=== PATIENT | female | born 1955 | race Hispanic/Latino ===

== ENCOUNTER 2018-03-15 10:57 | Day surgery (SDC) | payer BC ==
[2018-03-10 15:50] VITALS: BP 156/74
[2018-03-10 16:13] LABS: CREATININE 0.9 mg/dL (0.5-1.5); POTASSIUM 3.5 mmol/L (3.5-5.1)
[~2018-03-15] VITALS: Ht 162.6 cm; Wt 78.2 kg
[2018-03-15] VITALS (13 sets, daily range): BP systolic 125–190; BP diastolic 67–88
[~2018-03-15 10:57] MED LIST: ATOR10 PO; BIMA2.5D4 OU; CEFAZOLIN SODIUM 1 GM VIAL IVP ONE; COSO10OS OU; EMPA10TA PO; LACTATED RINGERS 1000ML 1,000 ML IV SCH
[2018-03-15] MEDS ORDERED: SODIUM CHLORIDE 0.9% 1000ML 1,000 ML IV ONE (11:29)
[2018-03-15] MEDS ORDERED: CEFAZOLIN SODIUM 1 GM VIAL ONE (11:29)
[2018-03-15] MEDS ORDERED: EPINEPHRINE 1 MG/ML 30ML VIAL IJ ONE (12:09)
[2018-03-15] MEDS ORDERED: BUPIVACAINE/EPI/PF 0.25% 30ML VIAL IJ ONE (12:10)
[2018-03-15] MEDS ORDERED: CELESTONE SOLUSPAN 6 MG/ML 5ML VIAL ONE (12:12)
[2018-03-15] MEDS ORDERED: LIDOCAINE PF 2% 5ML ABBOJECT ONE (13:44)
[2018-03-15] MEDS ORDERED: FENTANYL CITRATE PF 50 MCG/1 ML 2ML VIAL ONE ×2 (13:44→14:24)
[2018-03-15] MEDS ORDERED: PROPOFOL 10 MG/ML 20ML VIAL IV ONE (13:44)
[2018-03-15] MEDS ORDERED: ONDANSETRON HCL 4 MG/2 ML VIAL ONE (13:44)
[2018-03-15] MEDS ORDERED: SUCCINYLCHOLINE CHLORIDE 20 MG/ML 10 ML VIAL ONE ×2 (13:44→14:01)
[2018-03-15] MEDS ORDERED: DEXAMETHASONE SOD PHOSPHATE 4 MG/ML 1ML VIAL ONE (14:02)
[2018-03-15] MEDS ORDERED: MORPHINE SULFATE 4 MG/1ML SYG ONE (15:04)
[2018-03-15] MEDS ORDERED: ROPIVACAINE 0.5% 5MG/ML 30ML IJ ONE (15:10)
[2018-03-15] MEDS ORDERED: MEPERIDINE-PF 25 MG/ML SYG ONE (15:17)
[2018-03-15] MEDS ORDERED: KETOROLAC TROMETHAMINE 30MG/ML ONE (15:35)
== END 2018-03-15 16:51 | disposition home or self-care (01) ==
LOC: DAH 10:57
PROVIDERS: ATTEND Orthopaedic Surgery
DX: M75.102 Unspecified rotator cuff tear or rupture of left shoulder, not specified as traumatic (principal); M75.42 Impingement syndrome of left shoulder
CPT/HCPCS: 36415; 80048; 82948; J0171; J0330; J0690; J0702; J1100; J1885; J2001; J2175; J2270; J2405; J2704; J2795; J3010; J3490; J7030

== ENCOUNTER 2020-01-11 16:44 | Inpatient (IN) | payer BC, OTHER ==
[~2020-01-11] VITALS: Ht 162.6 cm; Wt 79.1 kg
[~2020-01-11 16:44] MED LIST changes: -CEFAZOLIN SODIUM 1 GM VIAL IVP ONE; -LACTATED RINGERS 1000ML 1,000 ML IV SCH
[2020-01-11] MEDS ORDERED: ACETAMINOPHEN EXTRA STRENGTH 500 MG TABLET ONE (17:22)
[2020-01-11 17:40] LABS: APPEARANCE,URINE Clear (CLEAR); BILIRUBIN,URINE Negative (NEGATIVE); COLOR,URINE Yellow (YELLOW); GLUCOSE, URINE (UA) >=1000 mg/dL (NEGATIVE); KETONES,URINE Trace mg/dL (NEGATIVE); LEUKOCYTE ESTERASE ,URINE Negative (NEGATIVE); NITRATE,URINE Negative (NEGATIVE); OCCULT BLOOD,URINE Trace (NEGATIVE); PH,URINE 5.5 (5.0-8.0); PROTEIN,URINE POS 2+ mg/dL (NEGATIVE); UROBILINOGEN,URINE 0.2 mg/dL (0.2-1.0)
[2020-01-11 17:47] LABS: BACTERIA,URINE Rare /HPF (None Seen); MUCUS,URINE Rare LPF (None Seen); RBC,URINE 0-1 /HPF (0-1); SQUAMOUS EPITHELIAL CELL,UR Few /HPF (0-2); WBC,URINE 0-1 /HPF (0-1); YEAST,URINE BUDDING Few /HPF (None Seen)
[2020-01-11] MEDS ORDERED: ONDANSETRON HCL 4 MG/2 ML VIAL ONE (18:25)
[2020-01-11] MEDS ORDERED: CEFTRIAXONE SODIUM 1 GM ONE (18:25)
[2020-01-11 18:38] LABS: EOSINOPHILS % (AUTO) 0.1 % (0.0-8.0); HEMATOCRIT 43.6 % (36-48); LYMPHOCYTES % (AUTO) 7.4 % (21.0-51.0); MEAN CORPUSCULAR HEMOGLOBIN 30.3 pg (27.0-33.0); MEAN CORPUSCULAR HGB CONC 33.3 g/dL (32.0-36.0); MEAN CORPUSCULAR VOLUME 91.2 fL (79-99); NEUTROPHILS % (AUTO) 81.1 % (40.0-77.0); PLATELET COUNT (AUTO) 201 K/uL (130-400); RED BLOOD CELL COUNT(AUTO) 4.78 MIL/uL (4.00-5.50); RED CELL DISTRIBUTION WIDTH 12.2 % (11.0-15.5); WHITE BLOOD COUNT (AUTO) 7.3 K/uL (4.8-10.8)
[2020-01-11 18:44] LABS: ABG BASE EXCESS -2.6 mmol/L (-2.0-3.0); ABG HCO3 21.1 mmol/L (21.0-28.0); ABG OXYGEN SATURATION 94.3 % (95.0-99.0); ABG PCO2 34 mmHg (32-45)
[2020-01-11 18:48] LABS: CREATININE 1.1 mg/dL (0.5-1.5); POTASSIUM 3.6 mmol/L (3.5-5.1)
[2020-01-11 18:52] LABS: INR 0.94 (0.85-1.15); PARTIAL THROMBOPLASTIN TIME 28.6 SEC (26.3-35.5); PROTHROMBIN TIME 10.2 SEC (9.6-11.6)
[2020-01-11 18:53] LABS: ALBUMIN 3.9 g/dL (3.5-5.0); BILIRUBIN,TOTAL 0.3 mg/dL (0.2-1.0); CRP QUANTITATIVE 14.2 mg/L (0.00-9.0)
[2020-01-11 19:08] LABS: FERRITIN 153 ng/mL (15-150)
[2020-01-11 19:44] LABS: ERYTHROCYTE SEDIMENTATION RATE 9 MM/HR (0-30)
[2020-01-11] MEDS ORDERED: ERGOCALCIFEROL (VITAMIN D2) 50,000 UNIT CAPSULE PO ONE (20:30)
[2020-01-11] MEDS ORDERED: GUAIFENESIN-DM 200/20 MG 10 ML PO PRN (20:30)
[2020-01-11] MEDS ORDERED: MORPHINE SULFATE 2 MG/ML 1ML SYG IV PRN (20:30)
[2020-01-11] MEDS ORDERED: MAG HYDROX/AL HYDROX/SIMETH ES 30 ML SUSP UDCUP PO PRN (20:30)
[2020-01-11] MEDS: CEFTRIAXONE SODIUM 1 GM IVP SCH (20:30)
[2020-01-11] MEDS ORDERED: DiphenhydrAMINE HCL 50 MG/ML VIAL IV PRN (20:30)
[2020-01-11] MEDS ORDERED: ACETAMINOPHEN 325 MG TAB PO PRN (20:30)
[2020-01-11] MEDS ORDERED: LACTULOSE 20 GM/30 ML UDCUP PO PRN (20:30)
[2020-01-11] MEDS ORDERED: HYDRALAZINE HCL 20 MG/ML VIAL IV PRN (20:30)
[2020-01-11] MEDS ORDERED: LACTATED RINGERS 1000ML 1,000 ML IV SCH (20:30)
[2020-01-11] MEDS ORDERED: MORPHINE SULFATE 4 MG/1ML SYG IV PRN (20:30)
[2020-01-11] MEDS ORDERED: DIPHENHYDRAMINE HCL 25 MG CAPSULE PO PRN (20:30)
[2020-01-11] MEDS ORDERED: ONDANSETRON HCL 4 MG/2 ML VIAL IV PRN (20:30)
[2020-01-11] MEDS ORDERED: ZOLPIDEM TARTRATE 5 MG TAB PO PRN (20:30)
[2020-01-11] MEDS ORDERED: LIDOCAINE HCL 2% VISCOUS 30 ML, MAG HYDROX/AL HYDROX/SIMETH 30 ML, BELLADONNA-PHENOBARB... PO PRN ×3 (20:30)
[2020-01-11] MEDS ORDERED: BENZONATATE 100 MG CAPSULE PO PRN (20:30)
[2020-01-11] MEDS ORDERED: MAG HYDROX/AL HYDROX/SIMETH 30 ML, LIDOCAINE HCL 2% VISCOUS 30 ML, DIPHENHYDRAMINE HCL ... PO PRN ×3 (20:30)
[2020-01-11] MEDS ORDERED: NITROGLYCERIN 0.4 MG SL TAB SL PRN (20:30)
[2020-01-11] MEDS ORDERED: PHARMACY COMMUNICATION MISC SCH (20:45)
[2020-01-11] MEDS ORDERED: DEXAMETHASONE SOD PHOSPHATE 4 MG/ML 1ML VIAL IVP SCH (20:45)
[2020-01-11] MEDS ORDERED: IOHEXOL 350 MG/ML 100ML INFUS..BTL IV ONE (21:11)
[2020-01-11] MEDS ORDERED: HEPARIN SODIUM 5000UNIT/ML 1ML VIAL ONE (21:47)
[2020-01-11] MEDS ORDERED: DEXAMETHASONE SOD PHOSPHATE 10MG/ML 1ML VIAL ONE (21:47)
[2020-01-11] MEDS ORDERED: ACETAMINOPHEN 325 MG TAB ONE (21:48)
[2020-01-11] MEDS ORDERED: AZITHROMYCIN 500MG+NS 250ML 250 ML IV ONE (21:48)
[2020-01-11] MEDS ORDERED: FAMOTIDINE/PF 20 MG/2 ML VIAL IV ONE (21:49)
[2020-01-11] MEDS ORDERED: ERGOCALCIFEROL (VITAMIN D2) 50,000 UNIT CAPSULE ONE (21:49)
[2020-01-12 02:21] VITALS: BP 123/63
[2020-01-12] MEDS: AZITHROMYCIN 500MG+NS 250ML 250 ML IV SCH ×2 (02:28→20:55)
[2020-01-12] MEDS: HEPARIN SODIUM 5000UNIT/ML 1ML VIAL SQ SCH ×4 (02:30→20:51)
[2020-01-12] MEDS: FAMOTIDINE/PF 20 MG/2 ML VIAL IV SCH ×3 (02:30→20:53)
[2020-01-12] MEDS: INSULIN LISPRO 100 UNIT/ML 3ML SQ SCH ×5 (02:31→20:25)
[2020-01-12] MEDS: ACETAMINOPHEN 325 MG TAB PO PRN ×3 (04:58→21:12)
[2020-01-12 07:28] VITALS: BP 124/65
[2020-01-12 08:18] LABS: BASOPHILS % (AUTO) 0.4 % (0.0-5.0); EOSINOPHILS % (AUTO) 2.5 % (0.0-8.0); HEMATOCRIT 43.3 % (36-48); LYMPHOCYTES % (AUTO) 10.9 % (21.0-51.0); MEAN CORPUSCULAR HEMOGLOBIN 30.4 pg (27.0-33.0); MEAN CORPUSCULAR VOLUME 92.1 fL (79-99); MONOCYTES % (AUTO) 5.5 % (3.0-13.0); NEUTROPHILS % (AUTO) 80.3 % (40.0-77.0); PLATELET COUNT (AUTO) 194 K/uL (130-400); WHITE BLOOD COUNT (AUTO) 5.6 K/uL (4.8-10.8)
[2020-01-12] MEDS: CEFTRIAXONE SODIUM 1 GM IVP SCH ×2 (08:39→20:51)
[2020-01-12] MEDS: ASCORBIC ACID 500 MG TAB PO SCH (08:41)
[2020-01-12] MEDS: ZINC SULFATE 220 CAPSULE PO SCH (08:41)
[2020-01-12 08:43] LABS: ALANINE AMINOTRANSFERASE 25 U/L (12-78); ALBUMIN 3.5 g/dL (3.5-5.0); ASPARTATE AMINOTRANSFERASE 26 U/L (10-37); BILIRUBIN,TOTAL 0.3 mg/dL (0.2-1.0); CARBON DIOXIDE 25 mmol/L (21-32); CHLORIDE 105 mmol/L (101-111); CREATININE 0.8 mg/dL (0.5-1.5); GLOMERULAR FILTR. RATE CALC 77 mL/min (>60); GLUCOSE,RANDOM 170 mg/dL (70-105); LACTATE DEHYDROGENASE 124 U/L (81-234); POTASSIUM 3.8 mmol/L (3.5-5.1); SODIUM SERUM 140 mmol/L (136-145); TOTAL PROTEIN, SERUM 7.5 g/dL (6.0-8.3); UREA NITROGEN, BLOOD 12 mg/dL (7-18)
[2020-01-12 11:18] VITALS: BP 123/74
--- NOTE | 2020-01-12 14:59 | NUR ---
PT BELONGINGS RECEIVED FROM SECURITY. UNDERWEAR AND HOME MEDICATIONS AT THE BEDSIDE. PT SELF ADMINISTERED HOME MEDICATIONS FOR DM, GLAUCOMA NAD HTN DESPITE EDUCATION PROVIDED ABOUT RISK OF DOUBLE DOSE ONCE HOME MEDICATIONS ARE RESUMED AT [facility]. WILL NOTIFY NEXT SHIFT.
--- NOTE | 2020-01-12 15:25 | NUR ---
D/C PLAN CM spoke to pt regarding d/c planning. Pt is ind. with ADL's and lives with spouse. States spouse can assist in care as needed. Denies having any DME. Plan to home. CM to follow up for possible home oxygen needs. Addendum: 01/12/20 at 1527 by LEON MARTINS CM Amended: Links added.
[2020-01-12 15:42] VITALS: BP 124/71
[2020-01-12 19:00] VITALS: BP 128/70
[2020-01-12] MEDS ORDERED: DEXAMETHASONE SOD PHOSPHATE 4 MG/ML 1ML VIAL IVP SCH (20:45)
[2020-01-12] MEDS: DORZOLAMIDE HCL/TIMOLOL MALEAT DROPS 10 ML BOTTLE OU SCH (20:48)
[2020-01-12] MEDS ORDERED: LATANOPROST 2.5 ML DROPS OU SCH (21:00)
[2020-01-12 23:00] VITALS: BP 132/70
[2020-01-13 03:00] VITALS: BP 143/72
[2020-01-13 05:20] LABS: BASOPHILS % (AUTO) 0.2 % (0.0-5.0); EOSINOPHILS % (AUTO) 1.4 % (0.0-8.0); HEMATOCRIT 45.9 % (36-48); LYMPHOCYTES % (AUTO) 17.1 % (21.0-51.0); MEAN CORPUSCULAR HEMOGLOBIN 29.9 pg (27.0-33.0); MEAN CORPUSCULAR VOLUME 93.5 fL (79-99); MONOCYTES % (AUTO) 4.3 % (3.0-13.0); NEUTROPHILS % (AUTO) 76.7 % (40.0-77.0); PLATELET COUNT (AUTO) 219 K/uL (130-400); RED BLOOD CELL COUNT(AUTO) 4.91 MIL/uL (4.00-5.50); WHITE BLOOD COUNT (AUTO) 6.3 K/uL (4.8-10.8)
[2020-01-13 05:43] LABS: ALANINE AMINOTRANSFERASE 32 U/L (12-78); ALBUMIN 3.7 g/dL (3.5-5.0); ASPARTATE AMINOTRANSFERASE 32 U/L (10-37); BILIRUBIN,TOTAL 0.2 mg/dL (0.2-1.0); CARBON DIOXIDE 21 mmol/L (21-32); CHLORIDE 103 mmol/L (101-111); CREATININE 0.8 mg/dL (0.5-1.5); GLOMERULAR FILTR. RATE CALC 77 mL/min (>60); GLUCOSE,RANDOM 169 mg/dL (70-105); LACTATE DEHYDROGENASE 171 U/L (81-234); POTASSIUM 3.5 mmol/L (3.5-5.1); SODIUM SERUM 141 mmol/L (136-145); TOTAL PROTEIN, SERUM 7.9 g/dL (6.0-8.3); UREA NITROGEN, BLOOD 17 mg/dL (7-18)
[2020-01-13] MEDS: INSULIN LISPRO 100 UNIT/ML 3ML SQ SCH ×2 (06:40→11:30)
[2020-01-13 07:51] VITALS: BP 125/75
[2020-01-13] MEDS: FAMOTIDINE/PF 20 MG/2 ML VIAL IV SCH (08:37)
[2020-01-13] MEDS: ASCORBIC ACID 500 MG TAB PO SCH (08:37)
[2020-01-13] MEDS: ZINC SULFATE 220 CAPSULE PO SCH (08:37)
[2020-01-13] MEDS: CEFTRIAXONE SODIUM 1 GM IVP SCH (08:37)
[2020-01-13] MEDS: HEPARIN SODIUM 5000UNIT/ML 1ML VIAL SQ SCH ×2 (08:38→13:13)
[2020-01-13] MEDS: DORZOLAMIDE HCL/TIMOLOL MALEAT DROPS 10 ML BOTTLE OU SCH (08:53)
[2020-01-13] MEDS ORDERED: ATORVASTATIN CALCIUM 10 MG TABLET PO SCH (09:00)
[2020-01-13 11:39] VITALS: BP 151/79
[2020-01-13] MEDS: ACETAMINOPHEN 325 MG TAB PO PRN (13:19)
[2020-01-13] MEDS ORDERED: ASCO500T20 PO (13:24)
[2020-01-13] MEDS ORDERED: ZINC220C6 PO (13:24)
[2020-01-13] MEDS ORDERED: AZIT500T4 PO (13:24)
--- NOTE | 2020-01-13 15:09 | NUR ---
DISCHARGE D/c orders are in. Education, Summary of stay, Emotional support was given. IV removed(intact), no bleeding noted. Pt belongings at the bedside. Pt states her will pick her up. VS stable. Ready to off the unit.
[2020-01-13 15:22] VITALS: BP 146/80
== END 2020-01-13 16:13 | disposition home or self-care (01) | DRG 177 ==
LOC: EDH 16:44 → EDHIP 16:45 → 2AH 01-12 01:56
PROVIDERS: ADMIT Internal Medicine; ATTEND Internal Medicine
DX: U07.1 COVID-19 (principal); J12.89 Other viral pneumonia; J96.01 Acute respiratory failure with hypoxia; J98.11 Atelectasis; I51.7 Cardiomegaly; K76.0 Fatty (change of) liver, not elsewhere classified; E78.5 Hyperlipidemia, unspecified; E11.9 Type 2 diabetes mellitus without complications; H40.9 Unspecified glaucoma; R00.0 Tachycardia, unspecified; Z98.42 Cataract extraction status, left eye; Z98.41 Cataract extraction status, right eye; Z79.84 Long term (current) use of oral hypoglycemic drugs
CPT/HCPCS: 36415; 36600; 71045; 71275; 80053; 81001; 82550; 82728; 82803; 82948; 83605; 83615; 84145; 84484; 85025; 85378; 85610; 85651; 85730; 86140; 86900; 86901; 87040; 87426; 93005; G0378; J0456; J0696; J1100; J1644; J2405; J3490; Q9967

== ENCOUNTER → 2021-08-31 | Outpatient (CLI) | payer OTHER ==
[~2021-08-31] VITALS: Ht 162.6 cm; Wt 79.8 kg
[~2021-08-31] MED LIST changes: +ASCO500T20 PO; +AZIT500T4 PO; +REGADENOSON 0.4 MG/5 ML PF SYG IVP SCH; +ZINC220C6 PO
== END | disposition home or self-care (01) ==
LOC: SHCH 08:01
PROVIDERS: ATTEND Internal Medicine Cardiovascular Disease
DX: I20.9 Angina pectoris, unspecified (principal); I11.9 Hypertensive heart disease without heart failure; E11.9 Type 2 diabetes mellitus without complications; R94.39 Abnormal result of other cardiovascular function study
CPT/HCPCS: 78452; 93017; 93306; 96374; A9500 ×2; J2785